=== PATIENT | female | born 1995 | race Two or more races ===

== ENCOUNTER 2019-02-05 18:25 | Emergency (ER) | payer BC, SELFPAY ==
[~2019-02-05] VITALS: Ht 154.9 cm; Wt 68.0 kg
[~2019-02-05 18:25] MED LIST: FERR159T3 PO; MAG355OR14 PO; ONDA4TAB7 PO
[2019-02-05 18:57] VITALS: BP 139/88
[2019-02-05] MEDS ORDERED: PRED20TA PO (19:27)
[2019-02-05] MEDS ORDERED: TRIA15OI TP (19:27)
--- NOTE | 2019-02-05 19:27 | PHYS DOC ---
Past Medical History Past Medical History: No Pertinent History Additional Past Medical Histor: ANEMIA (PRABHJOT BILLINGS) Past Surgical History: Cholecystectomy (PRABHJOT BILLINGS) Alcohol Use: Occasionally Drug Use: None (PRABHJOT BILLINGS) Adult General Chief Complaint Chief Complaint: SKIN RASH/ABSCESS HPI HPI Patient is a 23 year old F with red itchy rash on arms, legs, trunk and back after working outdoors this weekend. She denies shortness of breath, wheezing, tongue, lip or face swelling. (PRABHJOT BILLINGS) Review of Systems Review of Systems Constitutional: Denies fever or chills HENT: Denies nasal congestion or sore throat Respiratory: Denies cough or shortness of breath Cardiovascular: Denies chest pain GI: Denies abdominal pain, nausea, vomiting, bloody stools or diarrhea Musculoskeletal: Denies back pain or joint pain Integument: Reports red itchy rash on arms, legs, chest and back. Neurologic: Denies headache, focal weakness or sensory changes All other systems were reviewed and found to be within normal limits, except as documented in this note. (PRABHJOT BILLINGS) Allergies Allergies Allergies Coded Allergies Type Severity Reaction Last Updated Verified No Known Drug Allergies 11/20/13 No (STORM CERON MD) Physical Exam Physical Exam Constitutional: Well developed, well nourished, no acute distress, non-toxic appearance. HENT: Normocephalic, atraumatic, bilateral external ears normal, oropharynx moist, no oral exudates, nose normal. Neck: Normal range of motion, no tenderness, supple, no stridor. Cardiovascular:Heart rate regular rhythm, no murmur Lungs & Thorax: Bilateral breath sounds clear to auscultation Abdomen: Bowel sounds normal, soft, no tenderness, no masses, no pulsatile masses. Skin: Warm, dry, patchy red areas that are excoriated and consistent with contact dermatitis on legs, arms, chest and back. Back: No tenderness, no CVA tenderness. Extremities: No tenderness, no cyanosis, no clubbing, ROM intact, no edema. (PRABHJOT BILLINGS) Current Patient Data Vital Signs Vital Signs Date Time Temp Pulse Resp B/P (MAP) Pulse Ox O2 Delivery O2 Flow Rate FiO2 02/05/19 18:57 98.6 88 16 139/88 (105) 99 Room Air 98.6 (STORM CERON MD) Lab Values Laboratory Tests Test 02/05/19 18:53 POC Urine HCG, Qualitative Hcg negative (Negative) (STORM CERON MD) EKG EKG [] (PRABHJOT BILLINGS) Radiology/Procedures Radiology/Procedures [] (PRABHJOT BILLINGS) Course & Med Decision Making Course & Med Decision Making Pertinent Labs and Imaging studies reviewed. (See chart for details) Discussed treatment with steroids and topical cream along with antihistamines. Pt to f/u with PCP and return if symptoms worsen at anytime. (PRABHJOT BILLINGS) Course & Med Decision Making Staff Physician Addendum: I was working in the ER during the course of this patient's visit. I was available for consultation as needed, but I was not directly involved in the care of this patient. (STORM CERON MD) Dragon Disclaimer Dragon Disclaimer This electronic medical record was generated, in whole or in part, using a voice recognition dictation system. (PRABHJOT BILLINGS) Departure Departure Impression: Primary Impression: Contact dermatitis Disposition: 01 HOME, SELF-CARE Condition: STABLE Referrals: NO PCP (PCP) Patient Instructions: Contact Dermatitis, [id number] Additional Instructions: Also take an antihistamine such as Claritin, Zyrtec or Gisel Scripts Triamcinolone Acetonide (TRIAMCINOLONE ACETONIDE 0.1% OINT) 15 Gm Oint...g. 1 LAUREN TP BID for WOUND CARE, #2 TUBE MIX WITH EUCERIN DIRECTED BY PHYSICIAN Prov: PRABHJOT BILLINGS 02/05/19 Prednisone (PREDNISONE) 20 Mg Tablet 1 TAB PO BID, #10 TAB Prov: PRABHJOT BILLINGS 02/05/19 PRABHJOT BILLINGS Feb 05, 2019 19:27 STORM CERON MD Feb 11, 2019 10:10
== END 2019-02-05 19:33 | disposition home or self-care (01) ==
LOC: ER 18:25
DX: L30.8 Other specified dermatitis (principal); Z90.49 Acquired absence of other specified parts of digestive tract
CPT/HCPCS: 81025; 99283